=== PATIENT | male | born 1955 | race Two or more races ===

== ENCOUNTER 2022-03-17 23:12 | Emergency (ER) | payer MEDICARE, OTHER ==
[~2022-03-17] VITALS: Ht 165.1 cm; Wt 81.6 kg
--- NOTE | 2022-03-18 00:05 | NUR ---
[id number]. CONFUSION AND BLOOD CLOTS IN THE URINE TODAY. TOLERATING R/A WELL WITH NO RESP DISTRESS. CONNECTED PT TO POX AND MONITOR.
--- NOTE | 2022-03-18 00:28 | NUR ---
URINE SPECIMEN SENT TO LAB
--- NOTE | 2022-03-18 00:30 | NUR ---
Sandrine singleton in [facility] - 03/18/22 at 0031 by JSARMPRO LUMBAR LAMINECTOMY - 01/09/22 FRONT CERVICAL SPINAL FUSION - 02/01/22 BACK CERVICAL SPINAL FUSION - 02/27/22
--- NOTE | 2022-03-18 00:30 | NUR ---
LUMBAR LAMINECTOMY - 01/09/22 FRONT CERVICAL SPINAL FUSION - 02/01/22 BACK CERVICAL SPINAL FUSION - 02/27/22 SURGERIES DONE AT [facility]
--- NOTE | 2022-03-18 00:30 | NUR ---
CAME WITH IV GUERLINE G18 ON RIGHT AC. WITH IFC F16 ATTACHED TO URO BAG
--- NOTE | 2022-03-18 00:31 | NUR ---
PÉREZ ([facility]) - [phone]
--- NOTE | 2022-03-18 00:55 | NUR ---
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
--- NOTE | 2022-03-18 01:18 | NUR ---
BROUGHT TO CT DEPT
[2022-03-18 01:19] LABS: BILIRUBIN,URINE 1+ (NEGATIVE); COLOR,URINE YELLOW (YELLOW); LEUKOCYTE ESTERASE ,URINE NEGATIVE (NEGATIVE); NITRITE, URINE NEGATIVE (NEGATIVE); PROTEIN,URINE 1+ mg/dl (NEGATIVE); UGLUCOSE NEGATIVE (NEGATIVE)
--- NOTE | 2022-03-18 01:36 | NUR ---
PT RETURNED TO ER BED [address]
[2022-03-18 01:37] LABS: BACTERIA,URINE Rare /HPF (None Seen); RBC,URINE 51-80 /HPF (0-2); SQUAMOUS EPITHELIAL CELL,UR Rare /HPF (None Seen); WBC,URINE 0-2 /HPF (0-3)
[2022-03-18 01:47] LABS: BASOPHILS % (AUTO) 0.3 % (0.0-2.0); EOSINOPHILS % (AUTO) 1.5 % (0.0-6.0); HEMATOCRIT 39 % (39-51); HEMOGLOBIN 12.9 g/dL (13.5-17.5); LYMPHOCYTES # (AUTO) 1.1 K/uL (0.8-4.8); LYMPHOCYTES % (AUTO) 16.2 % (20.0-44.0); MEAN CORPUSCULAR HGB CONC 33 g/dl (31.0-36.0); MEAN CORPUSCULAR VOLUME 91 fL (80-96); MONOCYTES # (AUTO) 0.7 K/uL (0.1-1.30); MONOCYTES % (AUTO) 10.5 % (2.0-12.0); NEUTROPHILS # (AUTO) 4.9 K/uL (1.8-8.9); NEUTROPHILS % (AUTO) 71.5 % (43.0-81.0); PLATELET COUNT (AUTO) 176 K/uL (150-450); RED BLOOD CELL COUNT(AUTO) 4.28 MIL/uL (4.5-6.0); WHITE BLOOD COUNT (AUTO) 6.8 K/uL (4.3-11.0)
[2022-03-18 01:57] LABS: CALCIUM, SERUM 8.6 mg/dL (8.5-10.1); CARBON DIOXIDE 26 mmol/L (21-32); CHLORIDE 97 mmol/L (98-107); CREATININE 0.8 mg/dL (0.6-1.3); GLUCOSE 143 mg/dL (74-106); SODIUM SERUM 130 mmol/L (136-145); UREA NITROGEN, BLOOD 11 mg/dL (7-18)
[2022-03-18 02:02] LABS: ACETAMINOPHEN < 10 ug/ml (10-30); ALANINE AMINOTRANSFERASE 19 U/L (12-78); ALBUMIN 2.7 g/dL (3.4-5.0); ALCOHOL, BLOOD < 3 mg/dL (0-0); ALKALINE PHOSPHATASE 110 U/L (46-116); ASPARTATE AMINOTRANSFERASE 16 U/L (15-37); BILIRUBIN,DIRECT 0.3 mg/dL (0.0-0.2); BILIRUBIN,TOTAL 0.8 mg/dL (0.2-1.0); TOTAL PROTEIN, SERUM 6.4 g/dL (6.4-8.2)
[2022-03-18 02:09] LABS: SERUM AMMONIA 13 umol/L (11-32)
--- NOTE | 2022-03-18 02:24 | NUR ---
PT TAKEN TO CT VIA [facility] FOR CTA
[2022-03-18] MEDS ORDERED: IOHEXOL-350 100 ML VIAL IV ONE (02:33)
[2022-03-18] MEDS ORDERED: CT SWABBABLE VALVE TRANS SET 1 EA INFUS.SET MC ONE (02:33)
[2022-03-18] MEDS ORDERED: IV NS 0.9% 250 ML IV ONE (02:33)
--- NOTE | 2022-03-18 02:54 | NUR ---
CAME BACK FROM CT DEPT
--- NOTE | 2022-03-18 03:41 | NUR ---
CALLED [facility]; ESTIMATED TIME FOR REPORT 25 MINUTES
[2022-03-18 04:22] LABS: BAND % (MANUAL) 3 % (0.0-5.0); BASOPHILS % (MANUAL) 0 % (0.0-2.0); EOSINOPHILS % (MANUAL) 2 % (0-4); LYMPHOCYTES % (MANUAL) 15 % (16-48); MONOCYTES % (MANUAL) 8 % (0-11.0); NEUTROPHILS % (MANUAL) 72 (42-76)
--- NOTE | 2022-03-18 04:26 | NUR ---
CALLED [facility] FOR TRANSPORTATION ETA IS [phone]
[2022-03-18 05:15] VITALS: BP 139/87
== END 2022-03-18 09:02 | disposition home or self-care (01) ==
LOC: ER 23:18
DX: R41.82 Altered mental status, unspecified (principal); F11.90 Opioid use, unspecified, uncomplicated; E11.22 Type 2 diabetes mellitus with diabetic chronic kidney disease; I12.0 Hypertensive chronic kidney disease with stage 5 chronic kidney disease or end stage renal disease; N18.6 End stage renal disease; Z99.2 Dependence on renal dialysis; Z94.0 Kidney transplant status
CPT/HCPCS: 99285; 51702; 93005; 71045; 70450; 71275; 82140; 85025; 80048; 80076; 85007; 81001; 36415; 84484 ×2; 85730; 80143; 80320; 80307; J7050; Q9967; G0480